=== PATIENT | male | born 1960 | race American Indian/Alaskan Native ===

== ENCOUNTER 2017-02-05 13:32 | Emergency (ER) | payer BC ==
[2017-02-05 14:09] VITALS: BP 139/93
--- NOTE | 2017-02-05 14:27 | Emergency Department Report ---
Chief Complaint: Nosebleed Stated Complaint: NOSEBLEED Time Seen by Provider: 02/05/17 14:25 - HPI History of Present Illness: PT reports nose bleed x 1 hr after blowing his nose. PT also recently reports being placed on a beta alex. - ROS Review of Systems: pt denies any other complaint at this time - Exam Vital Signs: Vital Signs 02/05/17 14:02 Temperature 98.3 F Pulse Rate 88 Respiratory 18 Rate Blood Pressure 139/93 O2 Sat by Pulse 99 Oximetry Physical Exam: no active bleeding. no bleeding in post pharynx MSE screening note: Focused history and physical exam performed. Due to findings the following was ordered: ED Disposition for MSE Condition: Stable
[2017-02-05 14:51] LABS: Hematocrit 40.6 % (35.5-45.6); Hemoglobin 13.3 gm/dl (11.8-15.2); Mean Corpuscular HGB Conc 33 % (32-34); Mean Corpuscular Hemoglobin 30 pg (28-32); Mean Corpuscular Volume 91 fl (84-94); Platelet Count 193 K/mm3 (140-440); Red Blood Count 4.47 M/mm3 (3.65-5.03); Red Cell Distribution Width 13.3 % (13.2-15.2); White Blood Count 6.8 K/mm3 (4.5-11.0)
[2017-02-05 15:06] LABS: INR 1.02 (0.87-1.13); Partial Thromboplastin Time 23.9 Sec. (24.2-36.6)
[2017-02-05 16:00] LABS: Anion Gap 20 mmol/L; Blood Urea Nitrogen 20 mg/dL (9-20); Calcium 9.5 mg/dL (8.4-10.2); Carbon Dioxide 23 mmol/L (22-30); Chloride 101.3 mmol/L (98-107); Glucose 136 mg/dL (75-100); Sodium 140 mmol/L (137-145)
--- NOTE | 2017-02-07 19:39 | ED Elopement Review ---
ED Pt Elopement review - Results review Lab results: Laboratory Tests 02/05/17 02/05/17 02/05/17 14:26 14:26 14:26 WBC 6.8 RBC 4.47 Hgb 13.3 Hct 40.6 MCV 91 MCH 30 MCHC 33 RDW 13.3 Plt Count 193 PT 13.3 INR 1.02 APTT 23.9 L Sodium 140 Potassium 4.0 Chloride 101.3 Carbon Dioxide 23 Anion Gap 20 BUN 20 Creatinine 1.0 Estimated GFR > 60 BUN/Creatinine Ratio 20.00 Glucose 136 H Calcium 9.5 - Call Back decision Pt Call Back Decision: No action required
== END 2017-02-05 23:00 | disposition left against medical advice (07) ==
LOC: ED 13:32
DX: R04.0 Epistaxis (principal); Z53.21 Procedure and treatment not carried out due to patient leaving prior to being seen by health care provider
CPT/HCPCS: 36415; 80048; 85027; 85610; 85730